=== PATIENT | male | born 1960 | race Caucasian/White ===

== ENCOUNTER 2019-11-15 10:23 | Outpatient (CLI) | payer BC, SELFPAY ==
--- NOTE | ~2019-11-15 | US_ITS ---
EXAMINATION:US venous doppler LE LT INDICATION:Left leg edema TECHNIQUE: Multiple grayscale, color flow and Doppler images of the left lower extremity deep venous systems were obtained and reviewed. COMPARISON:No prior studies for comparison. FINDINGS: The common femoral, superficial femoral and popliteal veins demonstrate normal respiratory variation, augmentation and compressibility. Color flow is also seen within the posterior tibial, pe roneal, greater saphenous and profunda veins. IMPRESSION: 1: No lower extremity deep venous thrombosis. Reviewed, dictated and finalized at location A.
== END 2019-11-15 10:24 | disposition home or self-care (01) ==
LOC: ANHIMG 10:30
PROVIDERS: PCP Family Medicine; Visit Provider Family Medicine
DX: R60.9 Edema, unspecified (principal)
CPT/HCPCS: 93971

== ENCOUNTER 2020-02-08 10:37 | Outpatient (CLI) | payer BC, SELFPAY ==
--- NOTE | ~2020-02-08 | XR_ITS ---
EXAMINATION: XR chest 2V DATE: 02/08/2020 10:55 INDICATION: Left chest pain. TECHNIQUE: Frontal and lateral views of the chest were obtained. COMPARISON: Chest 2 views 03/07/2016 FINDINGS: The chest demonstrates clear lungs without pneumonia, pleural effusion, or pneumothorax. Th e heart size is normal. IMPRESSION: 1. No acute cardiopulmonary disease. Reviewed, dictated and finalized at location A.
== END 2020-02-08 10:38 | disposition home or self-care (01) ==
LOC: ANHIMG 10:41
PROVIDERS: PCP Family Medicine; Visit Provider Family Medicine
DX: R07.9 Chest pain, unspecified (principal)
CPT/HCPCS: 71046

== ENCOUNTER 2020-10-17 07:30 | Outpatient (CLI) | payer BC, SELFPAY ==
--- NOTE | ~2020-10-17 | US_ITS ---
EXAMINATION: US retroperitoneal comp DATE: 10/17/2020 08:14 INDICATION: Urinary tract infection TECHNIQUE: Multiple ultrasound grayscale images of the kidneys were obtained. COMPARISON: Renal ultrasound dated 02/02/2013 FINDINGS: The right kidney measures 4.1 x 5.1 x 5.8 cm. Again noted is a partially duplicated right renal colle cting system better appreciated on prior CT studies from September 2004. The left kidney measures 13.0 x 6.1 x 6.6 cm. The kidneys demonstrate normal echogenicity. There is no hydronephrosis in either kidne y. No stones identified. The bladder is normal with prevoid trochlea bladder volume of 208 mL and T2 -weighted post void volume of 9 mL. IMPRESSION: 1. Partially duplicated right renal collecting system. Otherwise normal bilateral kidneys and bladde r with no hydronephrosis or abnormal increased postvoid residual bladder volume. Reviewed, dictated and finalized at location A. IMPRESSION: 1. Partially duplicated right renal collecting system. Otherwise normal bilate ral kidneys and bladder with no hydronephrosis or abnormal increased postvoid r esidual bladder volume.
== END 2020-10-17 07:31 | disposition home or self-care (01) ==
PROVIDERS: PCP Internal Medicine; Visit Provider Urology
DX: N39.0 Urinary tract infection, site not specified (principal)
CPT/HCPCS: 76770

== ENCOUNTER → 2021-01-08 02:57 | Outpatient (CLI) | payer BC, SELFPAY ==
[2021-01-08 19:50] LABS: SARS-CoV-2 RNA PCR Negative
== END ==
PROVIDERS: PCP Internal Medicine; Visit Provider Internal Medicine Gastroenterology
DX: Z01.812 Encounter for preprocedural laboratory examination (principal); Z20.822 Contact with and (suspected) exposure to COVID-19
CPT/HCPCS: C9803; U0003; U0005

== ENCOUNTER 2021-01-11 00:52 | Day surgery (SDC) | payer BC, SELFPAY ==
[2020-12-31 13:24] VITALS: BMI 38.3
[2020-12-31 13:46] VITALS: BMI 38.3
[2021-01-11 06:22] VITALS: BMI 36.7
[2021-01-11 06:47] LABS: Glucose Point of Care 224 mg/dl (65-105)
[2021-01-11 06:50] VITALS: BP 140/71; PULSE 64; RESP 20; TEMP 36.4; O2SAT 99
[2021-01-11] MEDS: LACTATED RINGERS 1,000 ML 150 ML IV CONT (06:51)
--- NOTE | 2021-01-11 06:54 | PM.HPGS ---
History of Present Illness History of Present Illness Consent: Risks, benefits, and alternatives have been discussed and questions answered. Patient agrees to proceed with procedure. Chief complaint: colitis, anemia Narrative: Geronimo Musa is a 60 year old male With chronic diarrhea and suspected inflammatory bowel disease Review of Systems Review of Systems: All systems reviewed & are unremarkable except as noted in HPI and below PMFSH Past Medical History Medical History Anemia Diabetes Irritable bowel syndrome (IBS) Surgical History Surgical History Hx of shoulder surgery Previous back surgery Previous back surgery Family History Family History Mother Diabetes mellitus Father Alzheimer disease Other Hypertension Social History Social History Smoking status: Never smoker Alcohol intake: former Substance use: never Substance use type: does not use Living arrangements: with family Gender identity (if verbalized by the patient): Male Spiritual care concerns: No Meds Home Medications and Allergies Home Medications Medication Instructions Recorded Confirmed Type terazosin 5 mg capsule 5 mg PO DAILY 08/27/20 01/11/21 History amlodipine 10 mg tablet 10 mg PO DAILY #90 tablet 10/19/20 01/11/21 Rx dapagliflozin 5 mg tablet 5 mg PO DAILY #30 tablet 10/19/20 01/11/21 Rx insulin lispro 100 unit/mL 20 unit SUBCUT TID ml 10/19/20 01/11/21 History subcutaneous solution lisinopril 40 mg tablet 40 mg PO DAILY #90 tablet 10/19/20 01/11/21 Rx mecobalamin (vitamin B12) 1,000 1,000 mcg PO DAILY #90 tablet 10/19/20 01/11/21 Rx mcg chewable tablet metformin 1,000 mg tablet 1,000 mg PO BID 90 Days #180 tablet 10/19/20 01/11/21 Rx flash glucose scanning reader #1 ea 10/28/20 01/11/21 Rx flash glucose sensor #2 ea 10/28/20 01/11/21 Rx hydrochlorothiazide 12.5 mg tablet 25 mg PO DAILY #90 tablet 10/28/20 01/11/21 Rx atorvastatin 20 mg tablet 20 mg PO DAILY #90 tablet 12/29/20 01/11/21 Rx insulin glargine U-300 conc 300 65 unit SUBCUT DAILY #6 ml 12/29/20 01/11/21 Rx unit/mL (3 mL) subcutaneous pen cholecalciferol (vitamin D3) 50,000 unit PO DAILY 12/31/20 01/11/21 History gabapentin 600 mg PO DIRECTED 12/31/20 01/11/21 History Allergies Allergy/AdvReac Type Severity Reaction Status Date / Time No Known Allergies Allergy Verified 01/11/21 06:21 Vital Signs Vital Signs - 24 hr 01/11/21 06:50 Temperature 36.4 C L Pulse Rate 64 Respiratory Rate 20 Blood Pressure 140/71 Pulse Oximetry 99 Exam Resp: Auscultation: clear to auscultation bilaterally Cardio: Rate: regular rate Rhythm: regular rhythm GI: GI Palp: Yes Soft to palpation and No Tenderness to palpation present (GI) Assessment and Plan Assessment and plan (1) Chronic diarrhea: Code(s): K52.9 - Noninfective gastroenteritis and colitis, unspecified Status: Acute Assessment and Plan: Colonoscopy with possible biopsy or polypectomy or cautery or injection of substances.
--- NOTE | 2021-01-11 06:56 | WPDANESEPPF ---
Anes - Initial Pre Proc Eval Procedure: Operation Date: 01/11/21 07:30 Proposed Procedures p Colonoscopy - Luis Farr MD Date/Time: 01/11/21 06:56 Surgeon: Luis Farr MD Pre Op Diagnosis: colitis, anemia Patient Data Age: 60 Gender: M Height: 1.93 m Weight: 137 kg Last Vital Signs Temp 36.4 C L 01/11/21 06:50 Pulse 64 01/11/21 06:50 Resp 20 01/11/21 06:50 BP 140/71 01/11/21 06:50 Pulse Ox 99 01/11/21 06:50 Allergies Allergy/AdvReac Type Severity Reaction Status Date / Time No Known Allergies Allergy Verified 01/11/21 06:21 Home Medications Medication Instructions Recorded Confirmed Type terazosin 5 mg capsule 5 mg PO DAILY 08/27/20 01/11/21 History amlodipine 10 mg tablet 10 mg PO DAILY #90 tablet 10/19/20 01/11/21 Rx dapagliflozin 5 mg tablet 5 mg PO DAILY #30 tablet 10/19/20 01/11/21 Rx insulin lispro 100 unit/mL 20 unit SUBCUT TID ml 10/19/20 01/11/21 History subcutaneous solution lisinopril 40 mg tablet 40 mg PO DAILY #90 tablet 10/19/20 01/11/21 Rx mecobalamin (vitamin B12) 1,000 1,000 mcg PO DAILY #90 tablet 10/19/20 01/11/21 Rx mcg chewable tablet metformin 1,000 mg tablet 1,000 mg PO BID 90 Days #180 tablet 10/19/20 01/11/21 Rx flash glucose scanning reader #1 ea 10/28/20 01/11/21 Rx flash glucose sensor #2 ea 10/28/20 01/11/21 Rx hydrochlorothiazide 12.5 mg tablet 25 mg PO DAILY #90 tablet 10/28/20 01/11/21 Rx atorvastatin 20 mg tablet 20 mg PO DAILY #90 tablet 12/29/20 01/11/21 Rx insulin glargine U-300 conc 300 65 unit SUBCUT DAILY #6 ml 12/29/20 01/11/21 Rx unit/mL (3 mL) subcutaneous pen cholecalciferol (vitamin D3) 50,000 unit PO DAILY 12/31/20 01/11/21 History gabapentin 600 mg PO DIRECTED 12/31/20 01/11/21 History Laboratory Tests 01/11/21 06:44 POC Capillary Glucose 224 mg/dl H mg/dl (65-105) Patient hx anesthesia problems: none Family hx anesthesia problems: none PMFSH Past Medical History Medical History (Updated 01/11/21 @ 06:57 by Reagan Weber DO) Anemia Diabetes Dyslipidemia Essential hypertension Irritable bowel syndrome (IBS) Neuropathy WILLIE (obstructive sleep apnea) Surgical History Surgical History Hx of shoulder surgery Previous back surgery Previous back surgery Family History Family History Mother Diabetes mellitus Father Alzheimer disease Other Hypertension Social History Social History Smoking status: Never smoker Alcohol intake: former Substance use: never Substance use type: does not use Living arrangements: with family Gender identity (if verbalized by the patient): Male Spiritual care concerns: No Anes - Eval Final PreProcedure Day of Procedure 01/11/21 06:56 Patient weight: obese Heart: regular rate and rhythm Lungs: clear to auscultation and normal air movement Airway: Mallampati scale class III Neurological: alert and oriented Last oral intake: >/= 8 hours ASA classification: III Emergent: no Anesthetic plan: proceed Anesthesia type and monitoring: general GIVS and standard monitoring Informed Consent: The patient's anesthetic plan and its attendant risks and benefits were discussed with the patient/family/POA. Questions were solicited and answers provided to the satisfaction of the patient/family/POA.
[2021-01-11] MEDS: SIMETHICONE ORAL SUSPENSION 20 MG/0.3 ML 30 ML BOTTLE 0.6 ML IRRIGATION (07:36)
[2021-01-11 07:44] VITALS: BP 109/57; PULSE 73; RESP 20; O2SAT 95
[2021-01-11 07:54] VITALS: BP 157/69; PULSE 66; RESP 14; O2SAT 96
[2021-01-11 07:58] LABS: Glucose Point of Care 217 mg/dl (65-105)
[2021-01-11 08:04] VITALS: BP 161/72; PULSE 68; RESP 17; O2SAT 99
== END 2021-01-11 08:15 | disposition home or self-care (01) ==
PROVIDERS: PCP Internal Medicine; Visit Provider Internal Medicine Gastroenterology
PROC: 0DJD8ZZ Inspection of Lower Intestinal Tract, Via Natural or Artificial Opening Endoscopic (ICD-10-PCS; CPT 45378; principal; 2021-01-11 07:30)
DX: K59.1 Functional diarrhea (principal); D64.9 Anemia, unspecified; K52.89 Other specified noninfective gastroenteritis and colitis; E11.9 Type 2 diabetes mellitus without complications; Z79.4 Long term (current) use of insulin; E66.01 Morbid (severe) obesity due to excess calories; Z68.36 Body mass index [BMI] 36.0-36.9, adult
CPT/HCPCS: 45380; 82948; 88305; J2704; J7120

== ENCOUNTER → 2022-11-24 09:17 | Outpatient (CLI) | payer BC, SELFPAY ==
--- NOTE | ~2022-11-24 | CT_ITS ---
Noncontrast CT scan of the lumbar spine CLINICAL HISTORY: Back pain TECHNIQUE: Axial noncontrast imaging of the lumbar spine was performed. Sagittal and coronal reformat isaias images were constructed. Dose reduction technique was used on this scan by utilizing automated ex posure control and iterative reconstruction technique. The dose-length product (DLP) was 981.20 mGy-c m. FINDINGS: There is posterior fusion hardware from L5 to S1, bilateral rods and transpedicular screws present. There are screw tracks from prior transpedicular screws at L3 and L4, the screws are no long er present. There is fusion of the facet joints from L3 through L5. Laminectomy defects of L4 and L5 are present. There is interbody fusion device at L5-S1. There is 4 mm anterolisthesis of L4 over L5. There is advanced degenerative disc change and/or partial fusion across the L3-L4 and L4-L5 disc spac es. At L1-L2, there is no disc bulge or herniation. No spinal canal stenosis or definite neural foraminal narrowing. At L2-L3, there is disc bulge and facet arthropathy, resulting in moderate to possibly severe central canal stenosis. There is moderate to severe left neural foraminal narrowing and mild right neural fo raminal narrowing. L3-L4, there is severe facet arthropathy. No patsy central canal stenosis. There is moderate bilatera l neural foraminal narrowing. At L4-L5, spinal canal is poorly evaluated due to streak artifact. There is probable mild bilateral n eural foraminal narrowing. At L5-S1, spinal canal is somewhat poorly evaluated due to streak artifact. There is probable moderat e to advanced bilateral neural foraminal narrowing. There is a fluid collection in the posterior soft tissues at the L3-L4 levels, which could reflect po stoperative seroma. This measures 6.0 x 2.2 cm in transverse dimensions. Impression: Postoperative change of the lower lumbar spine, as detailed above. Severe degenerative spondylosis at L2-L3, as detailed above. Additional moderate degenerative change in the remainder of the lumbar spine, as detailed above. 6.0 x 2.2 cm presumed postoperative seroma posteriorly at the L3-L4 levels. 4 mm anterolisthesis of L4 over L5. Reviewed, dictated and finalized at location M. Impression: Postoperative change of the lower lumbar spine, as detailed above. Severe degenerative spondylosis at L2-L3, as detailed above. Additional moderate degenerative change in the remainder of the lumbar spine, a s detailed above. 6.0 x 2.2 cm presumed postoperative seroma posteriorly at the L3-L4 levels. 4 mm anterolisthesis of L4 over L5.
== END ==
PROVIDERS: PCP Physical Medicine & Rehabilitation; Visit Provider Physical Medicine & Rehabilitation
DX: M47.816 Spondylosis without myelopathy or radiculopathy, lumbar region (principal); M96.843 Postprocedural seroma of a musculoskeletal structure following other procedure
CPT/HCPCS: 72131

== ENCOUNTER 2023-11-22 06:24 | Emergency (ER) | payer OTHER, SELFPAY ==
[2023-11-22] VITALS (31 sets, daily range): BP systolic 122–162; BP diastolic 64–112; PULSE 51–89; RESP 11–21; TEMP 36.4–36.8; O2SAT 95–100
--- NOTE | ~2023-11-22 | MR_ITS ---
EXAMINATION: MR brain/brain stem wo/w con DATE: 11/22/2023 15:48 INDICATION: Altered mental status. TECHNIQUE: Magnetic resonance imaging (MRI) of the brain and brainstem was performed without and with 20 mL MultiHance intravenous contrast. COMPARISON: Head CT 11/22/2023 FINDINGS: There is no intracranial hemorrhage, acute infarction, or abnormal intracranial mass lesion . The ventricles are normal in size. The orbits are normal. The paranasal sinuses are clear. The mast oid air cells are normal. IMPRESSION: 1. Normal brain. Reviewed, dictated and finalized at location E. IMPRESSION: 1. Normal brain.
--- NOTE | ~2023-11-22 | XR_ITS ---
EXAMINATION: XR foot RT min 3V DATE: 11/22/2023 10:06 INDICATION: Osteomyelitis at the fourth digit TECHNIQUE: Dorsoplantar, two oblique and lateral views of the right foot were obtained. COMPARISON: None. FINDINGS: Bone alignment is normal. No acute fracture. Mild polyarticular osteoarthritis involving multiple [place] metatarsal, metatarsophalangeal and interphalangeal joints. There is cortical erosion at the late ral side of the head and neck of the right fourth proximal phalanx which could be consistent with pro vided history of osteomyelitis. No other cortical erosions or periosteal reaction. Small Achilles anuja caneal spur. There is soft tissue swelling at the lateral aspect of the fourth toe. IMPRESSION: 1. Cortical erosion at the lateral head and neck of the right fourth proximal phalanx consistent with provided history of osteomyelitis. 2. 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 Reviewed, dictated and finalized at location A. IMPRESSION: 1. Cortical erosion at the lateral head and neck of the right fourth proximal p halanx consistent with provided history of osteomyelitis. 2. 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
--- NOTE | ~2023-11-22 | XR_ITS ---
EXAMINATION: XR knee RT 3V DATE: 11/22/2023 09:18 INDICATION: Right knee injury with laceration post fall TECHNIQUE: Anteroposterior, oblique and crosstable lateral views of the right knee were obtained COMPARISON: None. FINDINGS: Alignment is normal. No fracture. Joint spaces appear normal on nonweightbearing imaging. There are tiny marginal osteophytes along the patella consistent with mild patellofemoral osteoarthritis. Small enthesophyte at the anterior tibial tubercle. No joint effusion/layering lipohemarthrosis. Soft tiss ues are unremarkable. No radiopaque foreign bodies. IMPRESSION: 1. Mild patellofemoral osteoarthritis. No acute osseous abnormality or radiopaque foreign bodies. Reviewed, dictated and finalized at location A. IMPRESSION: 1. Mild patellofemoral osteoarthritis. No acute osseous abnormality or radiopaq ue foreign bodies.
--- NOTE | ~2023-11-22 | US_ITS ---
EXAMINATION:US venous doppler LE RT INDICATION:Right leg swelling TECHNIQUE: Multiple grayscale, color flow and Doppler images of the right lower extremity deep venous systems were obtained and reviewed. COMPARISON:No prior studies for comparison. FINDINGS: The common femoral, superficial femoral and popliteal veins demonstrate normal respiratory variation, augmentation and compressibility. Color flow is also seen within the posterior tibial, pe roneal, greater saphenous and profunda veins. IMPRESSION: 1: No lower extremity deep venous thrombosis. Reviewed, dictated and finalized at location B.
--- NOTE | ~2023-11-22 | XR_ITS ---
XR chest 1V 11/22/2023 09:19 Indication: Altered mental status. Recent hospitalization. Pneumonia. Procedure: AP view of the chest Comparison: Comparison to multiple prior studies sequentially, with oldest reviewed study dated 05/01. Findings: PICC line tip in the SVC. Mild pulmonary vascular congestion. No pleural effusion or pneumo thorax. No focal pneumonia. Impression: 1: Mild pulmonary vascular congestion. Reviewed, dictated and finalized at location B. Impression: 1: Mild pulmonary vascular congestion.
--- NOTE | ~2023-11-22 | CT_ITS ---
EXAMINATION: CT BRAIN W/O DATE: 11/22/2023 09:06 INDICATION: Altered mental status TECHNIQUE: Computed tomography (CT) of the head was performed without intravenous contrast. The dose- length product was 605.33 mGy-cm. Automated exposure control and iterative reconstruction technique w ere employed. COMPARISON: No prior studies for comparison. FINDINGS: Normal brain parenchymal volume for age. Normal mejia-white differentiation. No acute intrac ranial hemorrhage, infarction, mass or mass effect. There is intracranial atherosclerosis. There are scattered mild periventricular and subcortical white matter changes, most likely related to small ves chai ischemic disease (microangiopathy). No ventriculomegaly or midline shift. Midline sagittal images demonstrate a normal corpus callosum, c raniovertebral junction and sella turcica. Basilar cisterns are patent. Paranasal sinuses and mastoids are pneumatized. No depressed skull fractures. IMPRESSION: 1. No acute intracranial abnormality. Reviewed, dictated and finalized at location B.
[2023-11-22 07:09] LABS: Basophils Percent Auto 0.4 % (0.2-1.2); Eosinophils Absolute Auto 0.1 K/mm3 (0-0.3); Eosinophils Percent Auto 2.4 % (0-4.4); Hematocrit 50.9 % (42.0-52.0); Immature Granulocyte Absolute 0.01 K/mm3 (0.00-0.031); Immature Granulocyte Percent A 0.4 % (0-0.5); Immature Platelet Fraction Pct 3.8 % (0.9-11.2); Lymphocytes Absolute Auto 0.72 K/mm3 (0.9-3.2); Lymphocytes Percent Auto 28.6 % (18.3-44.2); Mean Corpuscular HGB Conc 31.4 g/dl (32-36); Mean Corpuscular Hemoglobin 27.6 pg (26-34); Mean Corpuscular Volume 87.9 fl (80-100); Mean Platelet Volume 10.8 fl (7.4-10.4); Monocytes Absolute Auto 0.1 K/mm3 (0.1-0.6); Monocytes Percent Auto 5.2 % (2.6-8.5); Neutrophils Absolute Auto 1.6 K/mm3 (1.3-6.7); Platelet Count Result 84 k/mm3 (150-375); Red Blood Count 5.79 M/mm3 (4.6-6.20); Red Cell Distribution Width 15.5 % (11.5-14.5); White Blood Count 2.5 K/mm3 (4.5-10.0)
[2023-11-22 07:16] LABS: Lactic Acid Reflex 1.5 mmol/L (0.7-2.0)
[2023-11-22 07:17] LABS: Alanine Aminotransferase 29 U/L (6-50); Albumin Level 3.6 g/dL (3.5-5.1); Alkaline Phosphatase 268 U/L (38-126); Anion Gap 8 mmol/L (4-12); Appearance Urine Clear (Clear); Aspartate Amino Transferase 27 U/L (17-59); Bacteria Urine None Seen /hpf; Bilirubin Urine Negative (Negative); Bilirubin,Total 0.5 mg/dL (0.2-1.3); Blood Urea Nitrogen 22 mg/dL (9-20); Blood Urine Negative (Negative); Calcium 9.1 mg/dL (8.4-10.2); Carbon Dioxide 22 mmol/L (22-30); Chloride 107 mmol/L (98-107); Color Urine Yellow (Yellow); Creatine Kinase 46 U/L (55-170); Estimated CRCL calculation 111 ml/min; Estimated Glomerular Filt Rate > 60; Glucose 450 mg/dL (65-110); Glucose Urine UA 3+ mg/dL (Negative); Ketones Urine Negative (Negative); Leukocyte Esterase Ur Negative LEU/UL (Negative); Nitrate Urine Negative (Negative); Non Pathogenic Casts 0-2; Potassium 4.2 mmol/L (3.4-5.0); Protein Urine Trace mg/dL (Negative); RBC Urine 0-2 /hpf (0-2); Sodium 137 mmol/L (137-145); Specific Grav Ur 1.021 (1.001-1.035); Squamous Epithelial Cell Urine None Seen /hpf (Few); Urobilinogen Urine 0.2 mg/dL (<2.0); WBC Urine 0-5 /hpf (0-3); pH Urine 5.5 (5.0-9.0)
[2023-11-22 07:23] LABS: Magnesium 1.9 mg/dL (1.6-2.3)
[2023-11-22 07:28] LABS: Add Urine Microscopic? YES
[2023-11-22 07:31] LABS: Alveolar/Arterial O2 Gradient 6.8 mmHg; Base Excess ABG -1.3 mEq/l (+/-2.0); Device ROOM AIR; Fractional Inspired Oxygen 21 %; Modified Allen's Test Pass; Oxygen Content ABG 14.5 %vol (16.0-22.0); Oxygen Saturation ABG 96.8 % (95.0-100.0); Oxyhemoglobin 95.6 % THb (90.0-100.0); PCO2 ABG 42.5 mmHg (35.0-45.0); PO2 FiO2 Ratio Arterial Blood 4.38 %; Site Drawn RIGHT RADIAL; Total Hemoglobin 10.7 g/dL (12.0-18.0); pH ABG 7.369 (7.350-7.450)
--- NOTE | 2023-11-22 07:38 | ED.WEAKNESS ---
HPI - Weakness General Chief complaint: Weakness Stated complaint: AMS Time Seen by Provider: 11/22/23 07:35 Source: family ( [facility]) Mode of arrival: ambulatory Limitations: altered mental status History of Present Illness HPI Narrative: Patient has a history of poorly controlled diabetes mellitus. Recently admitted to [facility] for osteomyelitis of right 4th digit/toe and cellulitis and discharged on IV antibiotics. has been assisting with antibiotic infusion. She states last night he was at his baseline although seemed more tired and went to bed without having the TV on which is a bit unusual for him. He is responsible for taking his own insulin so she is unsure if it was taken. This morning, he had generalized weakness and was not speaking, only grunting. She thought maybe he took too many melatonin last night. She encouraged him to get up for IV abx infusion but he was less responsive. She found him slumped over on the bed on his knees. No fevers, no cough. Blood glucose for EMS was >500 who started normal saline. Patient's has documentation from [facility] where he was admitted from 11/07/23 - 11/15/23. He was prescribed at that time cefepime 2 g IV infusion in PICC, daptomycin 800 mg IV infusion in PICC, diclofenac, metronidazole PO, oxycodone , and pregabalin. His Tresiba/insulin degludec was changed. He was advised to STOP taking baclofen, cephalexin, cyanocobalamin, doxycycline, furosemide, gabapentin, meloxicam, metformin, potassium chloride, terazosin. states they can not get the pregabalin filled until December 14 given he had been on gabapentin for neuropathy. She states for this reason she has continued giving the gabapentin until Lyrica can be filled but this is the only change to the above. Baclofen had been used previously but not recently. Appt Dr Bills Monday. Related Data Allergies Allergy/AdvReac Type Severity Reaction Status Date / Time No Known Allergies Allergy Verified 04/06/22 08:30 [facility] Past Medical History Medical History Anemia B12 deficiency BPH (benign prostatic hyperplasia) Dyslipidemia Essential hypertension History of pancreatitis History of pulmonary embolism due to blood clot from PICC line Irritable bowel syndrome (IBS) Lumbar radiculopathy Lymphedema Morbid obesity Neuropathy WILLIE (obstructive sleep apnea) Thrombocytopenia Type 2 diabetes mellitus Ulcerative colitis Surgical History Surgical History Hx of shoulder surgery Previous back surgery Family History Family History Mother Diabetes mellitus Father Alzheimer disease Other Hypertension Social History Social History (Updated 11/25/23 @ 08:35 by Danielle Sanderson MD) Smoking status: Never smoker Alcohol intake: former Substance use: never Substance use type: does not use Living arrangements: with family Additional living arrangements comments: N[facility] Gender identity (if verbalized by the patient): Male Spiritual care concerns: No Exam Narrative: GENERAL: Well-appearing, well-nourished. HEAD: Normocephalic, atraumatic. EYES: Non injected, non icteric ENT: Nares clear, no rhinorrhea or epistaxis. NECK: Supple. CHEST: Clear to auscultation. No respiratory distress. HEART: Regular rate and rhythm. . ABDOMEN: Soft, nondistended. EXTREMITIES: 4th right toe slightly discolored compared to others. Right lower extremity with overlying redness/warmth. SKIN: Warm, dry. Abrasion/mild ulceration to right knee without active bleeding. NEURO: Eyes closed. Not following commands or speaking. Subtle occasional movements/fasciculations/tremors, particularly appreciated at shoulders. Course Vital Signs Vital signs: Vital Signs Temperature 97.5 F L 11/22/23 06:23 Pulse Rate 62 11/22/23 06
[2023-11-22 10:05] LABS: Acetaminophen < 10 ug/mL (10-30)
[2023-11-22 10:15] LABS: Beta-Hydroxybutyrate/Acetoacetate 0.24 mmol/L (0.02-0.27)
[2023-11-22 10:22] LABS: Amphetamine Screen Urine Negative (Negative); Barbiturate Screen Urine Negative (Negative); Benzodiazepines Screen Urine Negative (Negative); Cannabinoid Screen Urine Negative (Negative); Cocaine Screen Urine Negative (Negative); Methadone Screen Urine Negative (Negative); Opiate Screen Urine Negative (Negative); Phencyclidine Screen Urine Negative (Negative)
[2023-11-22 11:15] LABS: Glucose Point of Care 457 mg/dl (65-105)
--- NOTE | 2023-11-22 14:00 | PC.NURSE ---
spoke with MRI. patient's spouse filling out the MRI safety sheet at this time
[2023-11-22 16:36] LABS: Glucose Point of Care 337 mg/dl (65-105)
== END 2023-11-22 18:58 | disposition short-term general hospital (02) ==
PROVIDERS: Emergency Medicine; Emergency Provider Student in an Organized Health Care Education/Training Program; PCP Family Medicine
DX: R41.82 Altered mental status, unspecified (principal); E11.65 Type 2 diabetes mellitus with hyperglycemia; E53.8 Deficiency of other specified B group vitamins; R74.8 Abnormal levels of other serum enzymes; D72.819 Decreased white blood cell count, unspecified; D69.6 Thrombocytopenia, unspecified; M17.11 Unilateral primary osteoarthritis, right knee; E78.5 Hyperlipidemia, unspecified; I10 Essential (primary) hypertension; E66.01 Morbid (severe) obesity due to excess calories; Z68.36 Body mass index [BMI] 36.0-36.9, adult; Z86.711 Personal history of pulmonary embolism
CPT/HCPCS: 36415; 36600; 70450; 70553; 71045; 73562; 73630; 80053; 80307; 81001; 82010; 82550; 82805; 82948; 83605; 83735; 85025; 85055; 87040; 93971; 99285; A9577